=== PATIENT | female | born 1945 | race Caucasian/White ===

== ENCOUNTER 2018-07-27 16:45 | Observation (INO) | payer BC, MEDICARE ==
[2018-07-27] MEDS ORDERED: METHYLPREDNISOLONE SOD SUCC/PF 40 MG/ML VIAL IV ONE (17:04)
[2018-07-27] MEDS ORDERED: ALBUTEROL SULFATE/IPRATROPIUM 3 ML NEBU IH ONE ×2 (17:04→18:08)
[2018-07-27] MEDS ORDERED: METHYLPREDNISOLONE SOD SUCC/PF 125 MG/2 ML VIAL IV ONE (17:12)
--- NOTE | 2018-07-27 17:26 | ERNOTE ---
Dyspnea - General Presenting Symptoms: shortness of breath, wheezing, other - cough Time Seen by Provider: 07/27/18 16:55 Source: patient Exam Limitations: no limitations - Immun/Allergies/Home Medications Immunizations: IMMUNIZATION HX Immunizations Up to Date Yes History of Influenza Vaccine Yes Hx Pneumococcal Vaccination Yes Allergies/Adverse Reactions: Allergies ciprofloxacin [From Cipro] Allergy (Unknown, Verified 12/18/17 13:12) Patient cannot remember reaction Home Medications: HOME MEDICATIONS Albuterol Sulfate [Albuterol Sulfate 2.5 MG/3 ML] 2.5 mg IH Q4H PRN 12/14/17 [Last Taken Unknown] Irbesartan [Avapro] 225 mg PO DAILY 12/14/17 [Last Taken Unknown] Magnesium 250 mg PO DAILY 12/14/17 [Last Taken Unknown] Multivit-Min/Iron/Folic/Lutein [Centrum Silver Women Tablet] 1 each PO DAILY 12/14/17 [Last Taken Unknown] Fluticasone/Salmeterol [Advair 250-50 Diskus] 1 puff IH BID #1 inhaler 12/17/17 [Last Taken Unknown] hydrOXYzine HCL [Atarax] 25 mg PO Q6H PRN #60 tab 12/19/17 [Last Taken Unknown] Spiriva 07/27/18 [Last Taken Unknown] - History of Present Illness Narrative: Over the past 3-4 days patient is noted escalating cough, wheezing and a yellowi sh-green sputum. She has been trying her breathing treatments at home every 4 hours but is me with only limited success. Severity: moderate Treatment CAREER SPECIALIST: by patient, albuterol Initiating event: Reports: upper resp illness Frequency of episodes: Reports: occassional episodes Modifying Factors - (Improves): Reports: albuterol Modifying Factors (Worsens): Reports: nothing Associated Symptoms-Dyspnea: Reports: denies symptoms Review of Systems - Review of Systems Constitutional: Present: See HPI EYE: Present: no symptoms reported ENT: Present: no symptoms reported Respiratory: Present: See HPI Cardiology: Present: no symptoms reported Gastrointestinal/Abdominal: Present: no symptoms reported Genitourinary: Present: no symptoms reported Musculoskeletal: Present: no symptoms reported Skin: Present: no symptoms reported Neurological: Present: no symptoms reported Endocrine: Present: no symptoms reported Hematologic/Lymphatic: Present: no symptoms reported Psych: Present: no symptoms reported Medical History (Last Updated 07/27/18 @ 16:58 by Drew Correia RN) COPD (chronic obstructive pulmonary disease) Surgical History: Surgical History (Last Updated 07/27/18 @ 16:58 by Drew Correia RN) Hx of cataract surgery Social History: Preferred Language Amharic Do you have any hindu or No: caodaism cultural preference? Smoking Status Former smoker Have you smoked in the past 12 No months Do you dip or chew tobacco No Abuse History No History of abuse Psych History No pertinent hx Alcohol Use occasionally Drug Use none No Social History Section defined Physical Exam - Physical Exam General Appearance: Present: wd/wn, alert, moderate distress Head Exam: Present: normal inspection, no evidence of injury Eye Exam: Normal inspection: bilateral, PERRL: bilateral Ears, Nose, Throat: Present: normal ENT inspection, H, normal pharynx Neck: Present: normal inspection, nontender Respiratory: Present: no accessory muscle use, chest nontender, respiratory distress, wheezing, other - plan course breath sounds heard throughout Cardiovascular/Chest: Present: no murmur, normal peripheral pulses, tachycardia Gastrointestinal/Abdominal: Present: normal bowel sounds, nontender, nondistended, soft, no organomegaly Rectal Exam: Present: deferred Back Exam: Present: normal inspection, normal range of motion Extremity Exam: Present: normal inspection, non-tender, no edema, normal range of motion Neurological Exam: Present: alert, oriented, normal mood/affect Skin Exam: Present: normal color, warm/dry Lymphatic Exam: Present: no adenopathy ED Progress - Results and Orders Patient's Lab Results:: I have reviewed the patient's lab results. - Vital Signs Patient's Vital Signs:: I have reviewed the patient's vital signs. Vital Signs: Vital Signs 07/27/18 16:45 Temperature 36.8 C Pulse Rate 105 H Respiratory Rate 26 H Blood Pressure 181/81 H O2 Sat by Pulse Oximetry 92 L - X-Ray X-Ray #1 X-Ray: chest Interpretation: Reviewed by me - Progress/Reassessment Chief Complaint: Dyspnea Plan - Plan Plan: Patient appears to have failed outpatient treatment and is not getting better she is actually getting slightly worse. She will she did improve marginally emergency department and I feel she would benefit from more aggressive pulmonary toilet in the inpatient setting. Patient will be admitted for further breathing treatments, IV steroids and I will started on antibiotics here in the emergency department as well. Departure Clinical Impression: COPD exacerbation, Bronchitis - Departure Disposition: Still a patient Condition: Fair Referrals: Divine Katz, DIGITAL PERFORMANCE ANALYST [Primary Care Provider] -
[2018-07-27 17:32] LABS: Hematocrit 36.9 % (37.0-47.0); Hemoglobin 12.4 gm/dL (12.5-16.0); Mean Cell Volume 94.6 fl (78-100); Mean Corpuscular Hemoglobin 31.8 pg (27-31); Mean Corpuscular Hgb Conc 33.6 g/dl (32-36); Mean Platelet Volume 10.7 fl (8-12.5); Neutrophil # 4.5 K/mm3 (1.3-6.0); Neutrophil % 63.9 % (42-75.0); Platelet Count 305 K/mm3 (150-450); Red Cell Distribution Width 12.2 % (11.5-14.0); White Blood Count 7.1 K/mm3 (4.0-10.5)
[2018-07-27 17:40] LABS: ALT 38 U/L (19-67); AST 19 U/L (0-48); Albumin * 3.8 gm/dl (3.4-5.0); Alkaline Phosphatase * 55 U/L (50-170); Anion Gap 6.2 mmol/L (6.8-13.8); BNP * 96 pg/mL (5-325); BUN/Creatinine Ratio 15.3 (9.0-21.6); Bilirubin, Total 0.2 mg/dL (0.0-1.1); Blood Urea Nitrogen 15 mg/dL (3-23); Ca. Corrected For Albumin 9.3 mg/dL (8.4-10.2); Calcium * 9.5 mg/dL (7.9-10.9); Chloride 97 mmol/L (97-106); Glucose * 96 mg/dL (70-110); Magnesium 1.9 mg/dL (1.2-2.8); Potassium 4.2 mmol/L (3.4-4.6); Sodium 134 mmol/L (132-142); Total Protein 7.4 gm/dL (6.2-8.2); Troponin I Less than 0.017 ng/mL (0.00-0.10)
[2018-07-27] MEDS ORDERED: DOXYCYCLINE HYCLATE 100 MG TABLET PO ONE (18:11)
[2018-07-27] MEDS ORDERED: hydrOXYzine HCL 25 MG TABLET PO PRN (18:58)
--- NOTE | 2018-07-27 19:39 | HP ---
Chief Complaint - Chief Complaint Date of Service: 07/27/18 Time of Service: 19:38 History of Present Illness: 72 year old CF with newly dx history of COPD presented to the ER last night with worsening SOB, productive cough, and wheezing. She normally wears 2-3 L of o2 at home and has had to use more to "catch her breath". She denies fever/chills. She states productive cough discolored and thick. She was given steroids in the ER, started on doxycycline. She was placed in observation for COPD exacerbation. Her only other medical issue is HTN which she states is well controlled on her current meds. She sees an FLATWORK FEEDER in [place]. Medical History (Last Reviewed 07/27/18 @ 19:16 by Kassandra Frederick RN) Hypertension COPD (chronic obstructive pulmonary disease) Surgical History: Surgical History (Last Reviewed 07/27/18 @ 19:16 by Kassandra Frederick RN) Hx of cataract surgery Family History: Family History (Last Reviewed 07/27/18 @ 19:16 by Kassandra Frederick RN) Brother H/O aortic valve replacement Kidney transplant recipient Colon cancer Father Leukemia Mother Diabetes Social History: Preferred Language Upper Sorbian Do you have any catholic or No: amish cultural preference? Smoking Status Former smoker Have you smoked in the past 12 No months Do you dip or chew tobacco No Abuse History No History of abuse Psych History No pertinent hx Alcohol Use occasionally Drug Use none No Social History Section defined Review Of Systems (GEN) - Review of Systems Generalized/Overall Review: Absent: Weakness, Chills, Fever EENTM: Present: No Symptoms Reported Respiratory: Present: Cough, Shortness of Breath, Wheezing Cardiac: Absent: Chest Pain, Edema, Palpitations Abdominal: Present: No Symptoms Reported Genitourinary: Present: No Symptoms Reported Musculoskeletal: Present: No Symptoms Reported Neurological: Present: No Symptoms Reported Skin: Present: No Symptoms Reported Endocrine: Present: No Symptoms Reported Immunizations: IMMUNIZATION HX Immunizations Up to Date Yes History of Influenza Vaccine Yes Hx Pneumococcal Vaccination Yes Allergies/Adverse Reactions: Allergies Allergy/AdvReac Type Severity Reaction Status Date / Time ciprofloxacin [From Cipro] Allergy Unknown Verified 07/27/18 19:16 Home Medications: HOME MEDICATIONS Albuterol Sulfate [Albuterol Sulfate 2.5 MG/3 ML] 2.5 mg IH Q4H PRN 12/14/17 [Last Taken Unknown] Irbesartan [Avapro] 225 mg PO DAILY 12/14/17 [Last Taken Unknown] Magnesium 250 mg PO DAILY 12/14/17 [Last Taken Unknown] Multivit-Min/Iron/Folic/Lutein [Centrum Silver Women Tablet] 1 each PO DAILY 12/14/17 [Last Taken Unknown] hydrOXYzine HCL [Atarax] 25 mg PO Q6H PRN #60 tab 12/19/17 [Last Taken Unknown] Tiotropium [place] [Spiriva] 1 cap IH DAILY 07/27/18 [Last Taken Unknown] Exam - Exam Vital Signs: Vital Signs - Last Taken Temp 37.2 C 07/27/18 18:50 Pulse 94 07/27/18 18:50 Resp 32 H 07/27/18 18:50 BP 190/91 H 07/27/18 18:50 Pulse Ox 98 07/27/18 18:50 Constitutional: Present: Alert, Oriented x3, Cooperative ENT Exam: Present: normal ENT inspection. Absent: pharynx normal - mildy erythematous Eye Exam: bilateral eye: normal inspection, PERRL, EOMI Neck: Present: non-tender, full range of motion Back Exam: Present: normal inspection, no CVA tenderness Respiratory: Present: chest non-tender, decreased breath sounds - diminished breath sounds throughout, some wheezing. Absent: no accessory muscle use, respiratory distress Cardiovascular/Chest: Present: normal peripheral pulses, regular rate, rhythm Abdomen: Present: Normal bowel sounds, soft, nontender /Rectal: Present: Exam deferred Skin Exam: Present: normal color, warm/dry Neurologic: Present: set staff fitter II-XII nml as tested, alert, oriented x 3 Appearance: Present: appropriate appearance, appropriate insight Eye contact: Present: cooperative, good eye contact Thoughts: Present: normal thought pattern, normal mood /affect Diagnostic Studies: Abnormal Lab Results 07/27/18 07/27/18 Range/Units 17:16 17:16 RBC 3.90 L (4.2-5.4) M/mm3 Hgb 12.4 L (12.5-16.0) gm/dL Hct 36.9 L (37.0-47.0) % MCH 31.8 H (27-31) pg Lymphocytes % 18.8 L (20-51) % Eosinophils % 7.5 H (0.0-3.0) % Lymphocytes # 1.33 L (1.5-3.5) k/mm3 Carbon Dioxide 35.0 H (24-32.6) mmol/L Anion Gap 6.2 L (6.8-13.8) mmol/L Laboratory Results WBC 7.1 K/mm3 (4.0-10.5) 07/27/18 17:16 RBC 3.90 M/mm3 (4.2-5.4) L 07/27/18 17:16 Hgb 12.4 gm/dL (12.5-16.0) L 07/27/18 17:16 Hct 36.9 % (37.0-47.0) L 07/27/18 17:16 MCV 94.6 fl (78-100) 07/27/18 17:16 MCH 31.8 pg (27-31) H 07/27/18 17:16 MCHC 33.6 g/dl (32-36) 07/27/18 17:16 RDW 12.2 % (11.5-14.0) 07/27/18 17:16 Plt Count 305 K/mm3 (150-450) 07/27/18 17:16 MPV 10.7 fl (8-12.5) 07/27/18 17:16 Immature Gran % (Auto) 0.30 % (0.001-0.429) 07/27/18 17:16 Immature Gran # (Auto) 0.02 K/mm3 (0.000-0.0310) 07/27/18 17:16 Neutrophils % 63.9 % (42-75.0) 07/27/18 17:16 Lymphocytes % 18.8 % (20-51) L 07/27/18 17:16 Monocytes % 8.5 % (0.0-9) 07/27/18 17:16 Eosinophils % 7.5 % (0.0-3.0) H 07/27/18 17:16 Basophils % 1.0 % (0.0-1.0) 07/27/18 17:16 Nucleated RBC % 0.0 k/mm3 (0-1) 07/27/18 17:16 Neutrophils # 4.5 K/mm3 (1.3-6.0) 07/27/18 17:16 Lymphocytes # 1.33 k/mm3 (1.5-3.5) L 07/27/18 17:16 Monocytes # 0.6 k/mm3 (0.0-1.0) 07/27/18 17:16 Eosinophils # 0.5 k/mm3 (0.0-0.7) 07/27/18 17:16 Absolute Basophils 0.1 k/mm3 (0.0-0.1) 07/27/18 17:16 Sodium 134 mmol/L (132-142) 07/27/18 17:16 Plasma Sodium 134 mmol/L (130-142) 07/27/18 17:16 Potassium 4.2 mmol/L (3.4-4.6) 07/27/18 17:16 Chloride 97 mmol/L (97-106) 07/27/18 17:16 Carbon Dioxide 35.0 mmol/L (24-32.6) H 07/27/18 17:16 Anion Gap 6.2 mmol/L (6.8-13.8) L 07/27/18 17:16 BUN 15 mg/dL (3-23) D 07/27/18 17:16 Creatinine 0.98 mg/dL (0.4-1.4) 07/27/18 17:16 Est GFR (Non-Af Amer) 60 mL/min (60-130) 07/27/18 17:16 BUN/Creatinine Ratio 15.3 (9.0-21.6) 07/27/18 17:16 Random Glucose 96 mg/dL (70-110) 07/27/18 17:16 Calcium 9.5 mg/dL (7.9-10.9) 07/27/18 17:16 Calcium Adj for Albumin 9.3 mg/dL (8.4-10.2) 07/27/18 17:16 Magnesium 1.9 mg/dL (1.2-2.8) 07/27/18 17:16 Total Bilirubin 0.2 mg/dL (0.0-1.1) 07/27/18 17:16 AST 19 U/L (0-48) 07/27/18 17:16 ALT 38 U/L (19-67) 07/27/18 17:16 Alkaline Phosphatase 55 U/L (50-170) 07/27/18 17:16 Troponin I Less than 0.017 ng/mL (0.00-0.10) 07/27/18 17:16 B-Natriuretic Peptide 96 pg/mL (5-325) 07/27/18 17:16 Total Protein 7.4 gm/dL (6.2-8.2) 07/27/18 17:16 Albumin 3.8 gm/dl (3.4-5.0) 07/27/18 17:16 Assessment/Plan - Narrative Narrative: Patient will be placed in observation overnight. Will continue solu-medrol @ 60 mg q 8 hrs. Will continue doxycycline 100 mg BID. Will titrate oxygen down to 90-94%. Breathing txs as needed. Incentive spirometry ordered. Will monitor BP, restart hoime medications. If she improves overnight, likely home tomorrow afternoon. - Assessment/Plan (1) COPD exacerbation Problem: Resolved (2) HTN (hypertension) Problem: Chronic
[2018-07-28] MEDS: ALBUTEROL SULFATE 2.5 MG/0.5 ML VIAL.NEB IH PRN ×4 (02:27→20:21)
[2018-07-28] MEDS ORDERED: METHYLPREDNISOLONE SOD SUCC/PF 40 MG/ML VIAL IV SCH (03:00)
[2018-07-28] MEDS ORDERED: ACETAMINOPHEN 325 MG TABLET PO PRN (07:39)
[2018-07-28] MEDS: LOSARTAN POTASSIUM 50 MG TABLET PO SCH (08:00)
[2018-07-28] MEDS: TIOTROPIUM BROMIDE 5 CAP INHALER IH SCH (08:01)
[2018-07-28] MEDS: DOXYCYCLINE HYCLATE 100 MG TABLET PO SCH ×2 (08:01→20:15)
[2018-07-28] MEDS: MAGNESIUM OXIDE 400 MG TABLET PO SCH (08:01)
[2018-07-28] MEDS: METHYLPREDNISOLONE SOD SUCC/PF 125 MG/2 ML VIAL IV SCH ×2 (11:50→19:02)
--- NOTE | 2018-07-28 16:12 | PN ---
Subjective - Date and Time Seen Date: 07/28/18 Time: 16:12 Subjective Narrative: Patient improved overnight but is still requiring higher level of o2 than prescribed for as well as having significant wheezing throughout. She states that it feels difficult to catch her breath when she is up and moving. She endorses productive cough, but denies fever or chills. VS were stable over night. BP slightly elevated but patient monitors it closely at home and states she is normally well controlled. Objective - Review of Systems Generalized/Overall Review: Reports: Weakness, Fatigue. Denies: Chills, Fever EENTM: Reports: Throat Pain - from coughing. Denies: Nose Congestion Respiratory: Reports: Cough, Shortness of Breath, Wheezing Cardiac: Reports: No Symptoms Reported Abdominal: Reports: No Symptoms Reported Neurological: Reports: No Symptoms Reported Skin: Reports: No Symptoms Reported Endocrine: Reports: No Symptoms Reported - Vitals Vitals: Last Vital Signs Temp 36.8 C 07/28/18 14:26 Pulse 96 07/28/18 14:26 Resp 14 07/28/18 14:26 BP 143/64 07/28/18 14:26 Pulse Ox 96 07/28/18 14:26 - Abnormal Lab Findings Abnormal Lab Findings: Abnormal Lab Results 07/27/18 07/27/18 Range/Units 17:16 17:16 RBC 3.90 L (4.2-5.4) M/mm3 Hgb 12.4 L (12.5-16.0) gm/dL Hct 36.9 L (37.0-47.0) % MCH 31.8 H (27-31) pg Lymphocytes % 18.8 L (20-51) % Eosinophils % 7.5 H (0.0-3.0) % Lymphocytes # 1.33 L (1.5-3.5) k/mm3 Carbon Dioxide 35.0 H (24-32.6) mmol/L Anion Gap 6.2 L (6.8-13.8) mmol/L - Exam Constitutional: Present: Alert, Oriented x3 ENT Exam: Present: pharyngeal erythema - mild, likely due to cough Neck: Present: non-tender, full range of motion Breasts: Present: Exam deferred Respiratory: Present: no respiratory distress, no accessory muscle use, decreased breath sounds - in bases, rhonchi, wheezing, expiration (prolonged) Cardiovascular/Chest: Present: normal peripheral pulses, regular rate, rhythm, no edema Abdomen: Present: Normal bowel sounds, soft /Rectal: Present: Exam deferred Extremity: Present: normal range of motion, non-tender Skin Exam: Present: normal color, warm/dry Lymphatic: Present: no adenopathy Neurologic: Present: char filter operator helper II-XII nml as tested, alert, oriented x 3 Appearance: Present: appropriate appearance, appropriate insight Eye contact: Present: cooperative, good eye contact, normal speech Thoughts: Present: normal thought pattern, normal mood /affect Assessment/Plan Plan Narrative: Patient clinically improving but not back to baseline. Will keep her overnight, continue duonebs, doxycycline, steroids, and o2 therapy. Encouraged her to continue with the incentive spirometry. Will monitor BP - Problems/Diagnosis (1) COPD exacerbation Problem: Acute (2) HTN (hypertension) Problem: Chronic Qualifiers: Hypertension type: essential hypertension Qualified Code(s): I10 - Essential (primary) hypertension
[2018-07-29] MEDS: ALBUTEROL SULFATE 2.5 MG/0.5 ML VIAL.NEB IH PRN ×3 (01:08→11:04)
[2018-07-29] MEDS: METHYLPREDNISOLONE SOD SUCC/PF 125 MG/2 ML VIAL IV SCH ×2 (02:18→10:48)
[2018-07-29] MEDS: LOSARTAN POTASSIUM 50 MG TABLET PO SCH (08:48)
[2018-07-29] MEDS: DOXYCYCLINE HYCLATE 100 MG TABLET PO SCH (08:49)
[2018-07-29] MEDS: TIOTROPIUM BROMIDE 5 CAP INHALER IH SCH (08:49)
[2018-07-29] MEDS: MAGNESIUM OXIDE 400 MG TABLET PO SCH (08:49)
--- NOTE | 2018-07-29 12:15 | DS ---
(1) COPD exacerbation Problem: Acute (2) HTN (hypertension) Problem: Chronic Qualifiers: Hypertension type: essential hypertension Qualified Code(s): I10 - Essential (primary) hypertension Description of Stay: Ms. Cooley came in to the hospital due to dyspnea, productive cough, and wheezing. She has a new dx of COPD and states that the weather really affected her breathing lately. She was requiring more oxygen than normal and was using her duonebs more than indicated. She was brought in and started on IV steroids and doxycycline. Her vs were stable aside from some mildly elevated BPs, she was afebrile throughout her stay. She states that she monitors this at home and is normally 140s/80s and she did not want to make any adjustments to this at this time. Her labs were all in an acceptable range. She was discharged home with 7 days of doxycycline to complete and a short prednisone burst. Procedures Performed: none Results and Findings: Lab Pending Results 07/27/18 17:16: WBC 7.1, RBC 3.90 L, Hgb 12.4 L, Hct 36.9 L, MCV 94.6, MCH 31.8 H, MCHC 33.6, RDW 12.2, Plt Count 305, MPV 10.7, Immature Gran % (Auto) 0.30, Immature Gran # (Auto) 0.02, Neutrophils % 63.9, Lymphocytes % 18.8 L, Monocytes % 8.5, Eosinophils % 7.5 H, Basophils % 1.0, Nucleated RBC % 0.0, Neutrophils # 4.5, Lymphocytes # 1.33 L, Monocytes # 0.6, Eosinophils # 0.5, Absolute Basophils 0.1 07/27/18 17:16: Sodium 134, Plasma Sodium 134, Potassium 4.2, Chloride 97, Carbon Dioxide 35.0 H, Anion Gap 6.2 L, BUN 15 D, Creatinine 0.98, Est GFR (Non-Af Amer) 60, BUN/Creatinine Ratio 15.3, Random Glucose 96, Calcium 9.5, Calcium Adj for Albumin 9.3, Magnesium 1.9, Total Bilirubin 0.2, AST 19, ALT 38, Alkaline Phosphatase 55, Troponin I Less than 0.017, B-Natriuretic Peptide 96, Total Protein 7.4, Albumin 3.8 Discharge Location: Home Disposition: Home self-care Condition: Good Discharge Activity: Activity as tolerated Discharge Diet: General/regular food Referrals: Marcelo Rice DO [Staff Physician] - One Week Additional Patient Instructions (free text): -Please make TCM appointment unless alf discharge. Thank you! Kassandra @ [phone]. Prescriptions (Any new or edited meds): Doxycycline Hyclate [Vibratab] 100 mg PO BID #14 tablet predniSONE [Prednisone] 2 tab PO DAILY #10 tab Complete Home Medications List: Complete Home Medication List: Albuterol Sulfate [Albuterol Sulfate 2.5 MG/3 ML] 2.5 mg IH Q4H PRN 12/14/17 Irbesartan [Avapro] 225 mg PO DAILY 12/14/17 Magnesium 250 mg PO DAILY 12/14/17 Multivit-Min/Iron/Folic/Lutein [Centrum Silver Women Tablet] 1 each PO DAILY 12/14/17 hydrOXYzine HCL [Atarax] 25 mg PO Q6H PRN #60 tab 12/19/17 Tiotropium [place] [Spiriva] 1 cap IH DAILY 07/27/18 Doxycycline Hyclate [Vibratab] 100 mg PO BID #14 tablet 07/29/18 guaiFENesin [Mucinex] 600 mg PO BID tablet.sa 07/29/18 predniSONE [Prednisone] 2 tab PO DAILY #10 tab 07/29/18
[2018-07-29 13:43] VITALS: BP 147/68
== END 2018-07-29 13:40 | disposition home or self-care (01) ==
LOC: ER 16:45 → MS 16:45
PROVIDERS: ADMIT Family Medicine; ATTEND Family Medicine
CPT/HCPCS: 36415; 71020; 71046; 80053; 83519; 83735; 83880; 84484; 85025; 93005; 94640; 94664; 96374; 96376; 97161; 99284; G0378; G8978; G8979; G8980